=== PATIENT | female | born 1990 | race Two or more races ===

== ENCOUNTER 2024-08-01 18:47 | Emergency (ER) | payer MEDICAID, SELFPAY ==
[2024-08-01 19:01] VITALS: BP 108/61; PULSE 83; RESP 18; TEMP 36.8; O2SAT 99; BMI 37.8
--- NOTE | 2024-08-01 19:11 | XR_ITS ---
Examination: Abdomen sonogram, Limited Date and time of exam: August 01, 2024 1946 hrs. Indications: Epigastric pain beginning 2 hours ago Technique: Real-time jeter scale transabdominal sonographic images of the upper abdomen obtained. Findings: Multiple gallstones Gallbladder wall 0.2 cm Common bile duct 0.3 cm Pancreatic head 3.1 cm Hepatomegaly 20.7 cm fatty infiltration no focal liver lesions Normal hepatopedal portal venous flow Patent IVC Impression: Cholelithiasis, negative for cholecystitis Significant hepatomegaly fatty liver
--- NOTE | 2024-08-01 19:12 | PD.EDRME ---
Rapid Medical Screening Exam RME Arrival date/time: 08/01/24 18:47 33-year-old female approximately 4 weeks presents emergency department complaining of epigastric pain that radiates to upper back. Patient reports onset was today and denies any abdominal cramping or vaginal bleeding. Chief Complaint: Abdominal Pain Vital signs: Vital Signs Temperature 98.3 F 08/01/24 19:01 Pulse Rate 83 08/01/24 19:01 Respiratory Rate 18 08/01/24 19:01 Blood Pressure 108/61 08/01/24 19:01 Pulse Oximetry (%) 99 08/01/24 19:01 Oxygen Delivery Method Room Air 08/01/24 19:01 Vital signs reviewed by provider: Yes
[2024-08-01 20:34] LABS: Collection Type, Urine Clean Catch
[2024-08-01 20:36] LABS: Basophils % (Auto) 0 % (0-2.5); Eosinophils % (Auto) 0 % (0-10); Hematocrit 35.6 % (36.0-46.0); Hemoglobin 12.1 g/dL (12.0-16.0); Immature Granulocytes % (Auto) 0 % (0-0); Immature Granulocytes Auto 0.04 Thou/mm3 (0.00-0.00); Lymphocytes % (Auto) 8 % (10-50); Mean Corpuscular Hemoglobin 29.3 pg (25.0-35.0); Mean Corpuscular Volume 86 fL (80-100); Monocytes # (Auto) 0.5 Thou/mm3 (0.0-0.8); Monocytes % (Auto) 4 % (0-12); Neutrophils # (Auto) 11.6 Thou/mm3 (1.8-7.7); Neutrophils % (Auto) 88 % (37-80); Nucleated Red Blood Cell % 0 /100 WBC (0); Platelet Count 275 Thou/mm3 (140-440); RDW Standard Deviation 41.1 fL (36.4-46.3); Red Blood Count 4.13 Miln/mm3 (4.00-5.20); White Blood Count 13.2 Thou/mm3 (3.6-11.0)
[2024-08-01 20:42] LABS: Bacteria,Urine 2+; Bilirubin,Urine Negative (Negative); Blood,Urine Negative (Negative); Clarity,Urine Turbid (Clear/Hazy); Color,Urine Yellow (Lt Yel-Yel); Culture Indicated,Urine Contaminated; Glucose, Urine Negative (Negative); Ketones,Urine 4+ (Negative); Leukocyte Esterase,Urine Positive (Negative); Nitrite,Urine Negative (Negative); PH,Urine 6.5 (5.0-7.0); Protein,Urine 1+ (Neg - Trace); RBC,Urine 5 /hpf (0-3); Specific Gravity,Urine 1.029 (1.001-1.035); Squamous Epithelial Cell,Urine 31 /hpf (0-5); Urobilinogen,Urine Negative mg/dL (0.0-1.0); WBC,Urine 8 /hpf (0-5)
[2024-08-01 20:55] LABS: Alanine Aminotransferase 17 U/L (10-49); Albumin, Serum 4.3 gm/dL (3.5-5.0); Albumin/Globulin Ratio 1.7 (1.2-2.2); Alkaline Phosphatase 85 U/L (46-116); Anion Gap 8 (7-16); Aspartate Amino Transferase 18 U/L (0-34); BUN/Creatinine Ratio 10 Ratio (12-20); Bilirubin,Total 0.6 mg/dL (0.3-1.2); Blood Urea Nitrogen 5 mg/dL (9-23); Calcium 9.3 mg/dL (8.3-10.6); Calcium (Corrected) 9.3 mg/dL (8.5-10.1); Carbon Dioxide 22.5 mMol/L (20.0-31.0); Chloride 107 mMol/L (98-107); Creatinine (Component) 0.5 mg/dL (0.6-1.3); Estimated Creatinine Clearance 187.2 mL/min (>60); Globulin 2.6 gm/dL (2.3-3.5); Glucose 100 mg/dL (74-106); Lipase 24 U/L (12-53); Osmolality,Calculated 271 (275-295); Potassium 4.1 mMol/L (3.4-5.1); Sodium 137 mMol/L (136-145); Total Protein 6.9 gm/dL (5.7-8.2); eGFR > 60 See Note
[2024-08-01 21:10] VITALS: BP 129/72; PULSE 97; RESP 19; TEMP 36.9; O2SAT 97
--- NOTE | 2024-08-01 22:54 | PD.EDABDPN ---
ED Abdominal Pain RME/HPI General Chief Complaint: Abdominal Pain Stated complaint: EPIGASTRIC PAIN X 30 MIN WITH DIFFICULTY BREATHING Arrival date/time: 08/01/24 18:47 RME / HPI RME / HPI narrative: 08/01/24 18:47 33-year-old female approximately 4 weeks presents emergency department complaining of epigastric pain that radiates to upper back. Patient reports onset was today and denies any abdominal cramping or vaginal bleeding. ---- Dr. Hernandez?s Main ED Evaluation: 33yo female who is ~24 weeks gestation presents to the ED for a chief complaint of epigastric pain. Patient states she visited her PCP's office 3 weeks ago for the same complaint and was prescribed antacids, reporting they improved her symptoms for a period of time, until they recently stopped helping with her symptoms. She endorses having epigastric pain for the last 2-3 days and was concerned so she came in for evaluation. She denies any fever, chills, N/V or any other associated symptoms. Denies any history of similar symptoms. No known allergies. Related Data Allergies Allergy/AdvReac Type Severity Reaction Status Date / Time No Known Allergies Allergy Verified 04/10/23 10:16 Review of Systems Review of Systems Systems Reviewed: All systems reviewed, normal except as documented Narrative Review of Systems: Gen: No fever, no chills, no weight loss EYES: No discharge, no visual changes, no pain HEENT: No ear pain, no congestion, no sore throat PULM: No shortness of breath, no cough, no congestion CV: No chest pain, no dyspnea on exertion, no palpitations GI: No nausea, no vomiting, no diarrhea, + pain, no constipation : No frequency, no urgency, no dysuria Musc/skel: No joint pain, no back pain Skin: No rash. Warm and dry. Psyc: No hallucinations, no depression Heme/Lymph: No easy bleeding or bruising tendencies Neuro: No weakness, no headache Past Medical History Past Medical History NEUROLOGIC: Positive Neurological Disorders and Cuellar's Palsy; Negative Cerebrovascular Accident, Transient Ischemic Attacks (TIA), Dementia, Alzheimer's Disease, Parkinson's Disease, Meningitis, Seizures, Epilepsy, Multiple Sclerosis, Cerebral Palsy, Amyotrophic Lateral Sclerosis (ALS/Roslyn Gehrig's), Guillain-[place] Syndrome, Spina Bifida, Paralysis, Peripheral Neuropathy, Subdural Hematoma, Migraine, Head Trauma, Spinal Cord Injury or Traumatic Brain Injury CARDIAC: Negative Cardiac Disorders or Congestive Heart Failure RESPIRATORY: Negative Chronic Obstructive Pulmonary Disease (COPD) or Asthma (C) GASTROINTESTINAL: Negative Gastrointestinal Disorders, Hepatitis or Colorectal Cancer GENITOURINARY: Negative Genitourinary Disorders, Renal Disease or Prostate Cancer REPRODUCTIVE: Positive Previous Pregnancies; Negative Breast Cancer or Testicular Cancer MUSCULOSKELETAL: Negative Musculoskeletal Disorders or Bone Cancer ENT: Negative Head Trauma ENDOCRINE: Negative Endocrine Disorders, Diabetes Mellitus Type 1 or Diabetes Mellitus Type 2 HEMATOLOGIC: Negative Blood Disorders or Anemia OTHER HISTORY: Negative Autoimmune Disease, Developmental Delay, Blood Transfusions, Blood Transfusion Reaction, Anesthesia Reactions, Chemotherapy, Hyperbaric Therapy, MRSA, VRSA, Vancomycin-Resistant Enterococci, Human Immunodeficiency Virus (HIV), Chicken Pox, Measles, Mumps, Rubella (Spanish Measles), Pertussis, Clostridium Difficile, Breast Cancer, Cervical Cancer, Colorectal Cancer, Lung Cancer, Ovarian Cancer, Prostate Cancer or Testicular Cancer Family History FAMILY HISTORY: Negative Family Psychiatric Problems, Family Respiratory Disorders, Family Cardiac Disorders, Family Gastrointestinal Problems, Family Cancer, Family Surgery or Family Anesthesia Reaction Surgical History SURGICAL: Negative Endocrine Surgery, Ear Surgery or Section Social History SMOKING STATUS: Never smoker SECOND HAND EXPOSURE: No ED Exam Narrative Physical exam: GENERAL APPEARANCE: AxOx4, generally well-appearing, no acute distress. HEENT: NC, AT. MMM. EOMI, clear conjunctiva, oropharynx clear. NECK: Supple without lymphadenopathy. No stiffness or restricted ROM. HEART: Normal rate and regular rhythm, normal S1/S1, no m/r/g LUNGS: CTAB, moving air well. No crackles or wheezes are heard. ABDOMEN: Soft, nontender, no RUQ tenderness, 2 fingers above the fundus, palpable activity, nondistended with good bowel sounds heard. BACK: No midline C/T/L spine pain or deformity, No CVAT, no obvious deformity. EXTREMITIES: Without cyanosis, clubbing or edema. MUSCULOSKELETAL: FROM of all major joints, no chest tenderness NEUROLOGICAL: Grossly nonfocal. Alert and oriented, moving all 4 extremities. CN not formally tested but appear grossly intact. Observed to ambulate with normal gait. Skin: Warm and dry without any rash. Course Quality Measures none Orders Category Date Time Status US gall bladder Stat Exams 08/01/24 19:11 Completed CBC Stat Lab 08/01/24 20:14 Completed CMP [Comprehensive Metabolic Panel] Stat Lab 08/01/24 20:14 Completed Lipase Stat Lab 08/01/24 20:14 Completed Urinalysis, C/S if Indicated Stat Lab 08/01/24 19:34 Completed Vital Signs Vital signs: Vital Signs Temperature 98.3 F 08/01/24 19:01 Pulse Rate 83 08/01/24 19:01 Respiratory Rate 18 08/01/24 19:01 Blood Pressure 108/61 08/01/24 19:01 Pulse Oximetry (%) 99 08/01/24 19:01 Oxygen Delivery Method Room Air 08/01/24 19:01 Pulse ox is 99% on room air, which is normal according to my interpretation. Abdominal Pain MDM MDM Narrative MDM Narrative:: Scribe Attestation: 08/01/24 - Marium Henley, scribing for and in the presence of Dr. Hernandez. Patient data External records reviewed:: [facility] previous records (Per chart review, patient has no relevant previous ED visits to this facility.) Clinical information provided by:: patient Social determinants that could affect healthcare access:: none Patient has the following chronic illnesses:: none How is presenting disease/condition affected by chronic disease/condition?: no chronic disease Evaluation data The following diagnostics were reviewed and interpreted by me:: lab results and radiology exam(s) Lab and/or radiology exams considered but not ordered:: none Interpretation Summary: [facility] Report Signed Patient: AMANDO MAGAÑA Record#: [id number] Birthdate: 1990 Age/Sex: 33 / F Location: [facility] Attending Dr: Ordering Physician: Hood Roland (FNP) Date of Service: 08/01/24 Procedure(s): US gall bladder Accession Number(s): [id number] cc: Chilo Jackson MD; Álvaro Kasper MD; Hood Roland (FNP)~ Examination: Abdomen sonogram, Limited Date and time of exam: August 01, 2024 1946 hrs. Indications: Epigastric pain beginning 2 hours ago Technique: Real-time jeter scale transabdominal sonographic images of the upper abdomen obtained. Findings: Multiple gallstones Gallbladder wall 0.2 cm Common bile duct 0.3 cm Pancreatic head 3.1 cm Hepatomegaly 20.7 cm fatty infiltration no focal liver lesions Normal hepatopedal portal venous flow Patent IVC Impression: Cholelithiasis, negative for cholecystitis Significant hepatomegaly fatty liver Dictated By: Álvaro Kasper MD Signed By: <Electronically signed by Álvaro Kasper MD in OV> 08/01/248 Medications / Prescriptions Medications or Prescriptions considered but not ordered:: none Medication administrations:: none Consultations Consultation(s) initiated? (list below): No Diagnosis Differential diagnosis abdominal pain: constipation, diverticulitis, pancreatitis and other (gastritis, cholecystitis, cholelithiasis) Most likely diagnosis given after review of the tests above:: see below Admission Indicated Admission indicated?: not indicated Admission Request Was there a request for admission?: No Disposition Plan Disposition Plan: Discharge Discharge Attestation Discharge Attestation: The patient and all family members were given an opportunity to ask questions and understood the discharge instructions. Discharge instructions specifically effects, indications for sooner follow up or return to the emergency department, and the expected course of current diagnosis. Patient condition: Stable Discharge Plan Plan Patient Disposition: HOME (Self Care) Prescriptions/Referrals Referrals: Chilo Jackson MD [Primary Care Provider] - In 1 week Problem List Clinical Impression: related conditions, unspecified, second trimester, Cholelithiasis Patient/Caregiver Discharge Instructions Education Materials: ED Gallstones with Biliary Colic, ED Abd Pain Preg Gallstones Additional Instructions: Follow-up with your primary care doctor[facility] on for possible referral to see the [facility]. There are still options of possible surgery given you are in your second trimester, and this to be reviewed with the surgeon. You can return to the emergency department sooner if symptoms worsen or if you notice any new, concerning issues. Print Language: Telugu Stand Alone Forms: [facility] Award Info., Patient Portal Info Letter
== END 2024-08-01 23:06 | disposition home or self-care (01) ==
PROVIDERS: Emergency Provider Emergency Medicine; PCP Family Medicine
DX: O99.612 Diseases of the digestive system complicating pregnancy, second trimester (principal); K80.20 Calculus of gallbladder without cholecystitis without obstruction; O26.612 Liver and biliary tract disorders in pregnancy, second trimester; K76.0 Fatty (change of) liver, not elsewhere classified; Z3A.24 24 weeks gestation of pregnancy
CPT/HCPCS: 36415; 76705; 80053; 81001; 83690; 85025; 99284

== ENCOUNTER 2024-10-11 12:59 | Inpatient (IN) | payer MEDICAID, SELFPAY ==
[2024-10-11] VITALS (39 sets, daily range): BP systolic 120–168; BP diastolic 65–86; PULSE 63–96; RESP 13–98; TEMP 36.3–36.8; O2SAT 92–100; BMI 37.8
[2024-10-11 14:24] LABS: Basophils % (Auto) 0 % (0-2.5); Eosinophils % (Auto) 0 % (0-10); Hematocrit 35.4 % (36.0-46.0); Hemoglobin 11.9 g/dL (12.0-16.0); Immature Granulocytes % (Auto) 0 % (0-0); Immature Granulocytes Auto 0.03 Thou/mm3 (0.00-0.00); Lymphocytes # (Auto) 1.6 Thou/mm3 (1.0-4.8); Lymphocytes % (Auto) 22 % (10-50); Mean Corpuscular HGB Conc 33.6 g/dl (31.0-37.0); Mean Corpuscular Hemoglobin 28.3 pg (25.0-35.0); Mean Corpuscular Volume 84 fL (80-100); Monocytes # (Auto) 0.4 Thou/mm3 (0.0-0.8); Monocytes % (Auto) 6 % (0-12); Neutrophils % (Auto) 71 % (37-80); Nucleated Red Blood Cell % 0 /100 WBC (0); Platelet Count 251 Thou/mm3 (140-440); Red Blood Count 4.21 Miln/mm3 (4.00-5.20); White Blood Count 7.1 Thou/mm3 (3.6-11.0)
[2024-10-11] MEDS: RINGERS LACTATED 1000 ML 1,000 ML 100 ML IV (15:01)
[2024-10-11 15:03] LABS: Amphetamine/Metham Scrn,Ur OB Negative (Negative); Benzoylecgonine Screen, Ur OB Negative (Negative); Opiate Screen,Urine OB Negative (Negative); THC Screen,Urine OB Negative (Negative)
[2024-10-11] MEDS: CITRIC ACID/SODIUM CITR 15 ML UDC (BICITRA) 30 ML PO (15:15)
[2024-10-11] MEDS: FAMOTIDINE INJ 10 MG/ML VIAL 2 ML 20 MG IV (15:15)
[2024-10-11] MEDS: ceFAZolin/D5W 2 GM IV 2 GM/100 ML BAG IV (15:15)
--- NOTE | 2024-10-11 15:18 | PD.LDHP ---
Documentation for date of: 10/11/24 OB Labor/Induct. HPI History of Present Illness Chief complaint: leakage of fluid : 5 Para: 4 Term pregnancies: 4 pregnancies: 0 Living children: 4 History of Abortions: Spontaneous and Elective: 0 History of Vaginal deliveries: 3 History of sections: Yes History of : No Date of last menstrual period: 01/16/24 Gestational age based on last menstrual period: 38 History of present illness: Patient presents for loss of fluid, clear, that occurred at possibly 2130 last night. She was subsequently seen in the office today where gross leakage of fluid was noted and she was sent to L&D. No regular/painful ctx. No vaginal bleeding. Normal movement. No fevers/chills. Of note, patient had been considering a TOLAC and was told to go to [place] if she wished to proceed with TOLAC. However, she considered further and presented here desiring RLTCS. While she has satisfied parity, she never discussed BTL in the office and never signed consents. History of Present Dating criteria: LMP confirmed by 2nd trimester US Adequate Care: No Obstetrical complications: other Narrative: chronic hypertension taking aspirin Labs Labs: Negative: Hepatitis B, HIV, Chlamydia, Gonorrhea and Group Beta Strep Review of Systems Review of Systems Systems Reviewed: All systems reviewed, normal except as documented Constitutional Constitutional: Denies chills, Denies fever(s) and Denies headache(s) ENT Ears, Nose, Mouth, and Throat: Denies headache(s) and Denies vertigo Cardiovascular Cardiovascular: Denies chest pain, Denies dyspnea and Denies syncope Respiratory Respiratory: Denies dyspnea Gastrointestinal Gastrointestinal: Denies nausea and Denies vomiting Neurologic Neurologic: Denies headache(s), Denies other visual disturbances, Denies syncope and Denies vertigo Past Medical History Family History OTHER FAMILY HX: non-contributory Surgical History SURGICAL: Positive Section OTHER SURGICAL HX: appendectomy Social History SOCIAL: No ETOH in . No illicit drug use or tobacco Past Medical History Comments PMH COMMENT: Obesity, CHTN (presumably) noted at first OB visit at 23 weeks when ASA 81mg was initiated, gallstones Meds Home Medications and Allergies Home Medications ?Medication ?Instructions ?Recorded ?Confirmed ?Type aspirin 81 mg tablet,delayed 81 mg 1XD 10/11/24 10/11/24 History release vits no.130-ferrous fum 1 tab 1XD 10/11/24 10/11/24 History 27 mg iron-folic acid 800 mcg tablet ( Vitamin) Allergies Allergy/AdvReac Type Severity Reaction Status Date / Time No Known Allergies Allergy Verified 10/11/24 14:21 OB Exam Physical Exam Vital signs: Temp Pulse Resp BP Pulse Ox 98.3 F 96 18 133/70 H 99 10/11/24 13:18 10/11/24 13:18 10/11/24 13:18 10/11/24 13:17 10/11/24 15:12 Narrative: General: well developed, well nourished, no acute distress, conversant Cardiac: normal heart rate Lungs: breathing without distress Abdomen: soft, gravid, non-tender, no rebound or guarding. Well healed pfannenstiel incision with no hypertrophy. Extremities: no pain with palpation of calves Detailed Labor and Delivery Exam Dilation (cm): 3 Effacement (%): 50 station: -2 Consistency: medium Presentation: Vertex Membranes: ruptured Amniotic fluid: clear monitor accelerations: 15x15 monitor decelerations: None senior care variability: Moderate (11-25) Contraction frequency (min): irregular OB Results Labs 10/11/24 14:04 Labs: Short CBC 10/11/24 Range/Units 14:04 WBC 7.1 (3.6-11.0) Thou/mm3 Hgb 11.9 L (12.0-16.0) g/dL Hct 35.4 L (36.0-46.0) % Plt Count 251 (140-440) Thou/mm3 OB Assessment & Plan Assessment and Plan (1) History of section: Status: Acute Assessment and plan: Sissy is a 34yo with SIUP at 38wk presenting with PROM, clear at 2130 last night. Vitals wnl, benign exam. Reassuring assessment. care: first visit at 23 weeks and mild range bp's noted at that time, so presumably CHTN and ASA 81mg PO QD was initiated. Hx of macrosomia. Indication for section: history of prior section desiring RLTCS. Plan: -Admit to L&D -Establish IV, routine labs -NPO -Counseled/consented re: section. Discussed all r/b/a to include: bleeding (possible need for blood transfusion), infection (subcutaneous, deeper layers or uterine with possible need for prolonged admission or re-admission for IV antibiotics, I&D with wound packing, etc), injury to nearby structures such as bladder, bowel, ureters, blood vessels, nerves with possible need for re-operation, pain, injury to baby, hysterectomy, DVT/PE, . Answered all questions to patient and their support person's satisfaction. -IV abx ppx: 2g IV anceph -Nursing and anesthesia team aware of plan for section. Will proceed to OR when team is ready (2) PROM (premature rupture of membranes): Status: Acute (3) Insufficient care: Status: Acute (4) Chronic hypertension affecting : Status: Acute (2) PROM (premature rupture of membranes) Qualifiers: PROM onset of labor timing: unspecified duration between rupture of membranes and onset of labor PROM gestational age: full term Qualified Code(s): O42.92 - Full-term premature rupture of membranes, unspecified as to length of time between rupture and onset of labor (3) Insufficient care Qualifiers: Trimester: third trimester Qualified Code(s): O09.33 - Supervision of with insufficient care, third trimester
[2024-10-11 15:33] LABS: Syphilis Nonreactive (Nonreactive)
[2024-10-11] MEDS: ACETAMINOPHEN IVPB 1,000 MG/100 ML VIAL 250 MG IV (17:09)
[2024-10-11] MEDS: KETOROLAC INJ 30 MG/ML VIAL IVP ×2 (17:09→23:43)
[2024-10-11] MEDS: ONDANSETRON INJ 2 MG/ML INJ 2 ML 4 MG IV (17:09)
--- NOTE | 2024-10-11 17:23 | ESOP_ITS ---
Operative Note - PURCHASING AND CLAIMS SUPERVISOR Procedure Date of procedure: 10/11/24 Procedure Performed: Repeat low transverse section Indication: Sissy is a 34yo with SIUP at 38wk presenting with PROM, clear at 2130 the night prior. Grossly ruptured on exam. She has history of 3 vaginal deliveries followed by a section for NRFHT in 2022. She desires RLTCS. care: first visit at 23 weeks and mild range bp's noted at that time, so presumably CHTN and ASA 81mg PO QD was initiated. Hx of macrosomia. Pre-Op diagnosis: SIUP at 38wk with PROM History of prior section CHTN Late to care at 23 weeks History of macrosomia Post-Op diagnosis: SIUP at 38wk with PROM History of prior section CHTN Late to care at 23 weeks History of macrosomia Anesthesia type: Spinal Fluid amount (mL): 1,100 Urine output (mL): 450 Specimen: none Estimated blood loss (ml): 700 Findings: Minimal scarring in subcutaneous layer. Clear amniotic fluid. Male infant in cephalic presentation. Normal appearing uterus, fallopian tubes and ovaries. Complications: none Narrative: After obtaining informed consent, the patient was taken to the operating room. There was reassuring heart rate tracing prior. Spinal anesthesia was administered. She had barlow catheter in place and bilateral sequential compression devices were placed. She was then prepped and draped in the normal sterile fashion in the dorsal supine position with left lateral tilt. A timeout was performed to confirm patient name, date of , procedure and indication. The team was in agreement. Spinal anesthesia was found to be adequate using an Allis clamp. Anceph 2g IV x1 were given for prophylaxis. A Pfannenstiel skin incision was then made with the scalpel and carried through to the underlying layer of fascia. The fascia was incised in the midine and the incision was extended laterally with the Hayes scissors. The superior and inferior aspects of the fascial incision were then grasped with the Denver clamps, elevated and the underlying rectus muscles were dissected off bluntly and sharply. The peritoneum was entered digitally and the rectus muscles were then in the midline. The peritoneal incision was then extended superiorly and inferiorly with good visualization of the bladder. An Silvio retractor was placed. The lower uterine segment was scored in a transverse fashion with the scalpel. The uterus was then entered bluntly and the incision was extended with traction with clear amniotic fluid noted. The 's head was elevated to the level of the incision. Fundal pressure was applied. The head was delivered atraumatically in the OA position. The anterior shoulder, posterior shoulder and corpus were delivered without difficulty. The nose and mouth were suctioned with bulb suction and cord was clamped x2 and cut. was vigorous. The was handed off to the awaiting nursing team. Cord blood obtained for typing. The placenta was then removed with uterine massage and cord traction. The uterus was left in-situ and cleared of all clot and debris. The uterine incision was re paired with 0-vicryl suture in a running locking fashion. A second layer of interrupted sutures using O-vicryl was used to closed the hysterotomy incision in an imbricating fashion. The uterine incision was inspected and hemostasis was noted. IV pitocin was given per protocol with good uterine tone achieved. The gutters were cleared of all clot. Silvio retractor was removed. The peritoneum was closed using a 3-0 vicryl suture in running fashion. The rectus muscles were inspected and small areas of oozing were cauterized. The fascia was reapproximated with 0-Vicryl suture in a running fashion. The subcutaneous tissue was then irrigated. At that point ANJALI Lopez reapproximated Aung's fascia using 3-0 vicryl suture in a running fashion. She then sutured the skin with 4-0 monocryl suture in running subcuticular fashion. The incision was cleaned with a wet lap and dried with a dry lap. Oiuxbmohv-[id number] bandage was applied overlying the incision and activated according to fruit express agent instructions. Fundus was firm at the umbilicus. Sponge, lap and needle counts were correct x2. The procedure was without complications and the patient tolerated the procedure well. She was taken to recover further on Labor and Delivery, in stable condition. Surgical staff Operation Date: 10/11/24 15:15 Case Staff SHINGLE SHEARING MACHINE OPERATOR: Segun Shafer RNextrusion machine operator: Jessica Pearl Diagnosis Discharge Diagnosis (1) Chronic hypertension affecting : Status: Acute (2) Insufficient care: Status: Acute (3) PROM (premature rupture of membranes): Status: Acute (4) History of section: Status: Acute Problem List Completed Was Problem List Reviewed/Reconciled?: Yes (2) Insufficient care Qualifiers: Trimester: third trimester Qualified Code(s): O09.33 - Supervision of with insufficient care, third trimester (3) PROM (premature rupture of membranes) Qualifiers: PROM onset of labor timing: unspecified duration between rupture of membranes and onset of labor PROM gestational age: full term Qualified Code(s): O42.92 - Full-term premature rupture of membranes, unspecified as to length of time between rupture and onset of labor
[2024-10-11] MEDS: OXYTOCIN in NS 20 units 20 UNIT/1,000 ML BAG 125 UNIT IV (17:36)
--- NOTE | 2024-10-11 18:10 | PC.NURSE ---
10/11/2024 @[address] DANIEL, PT REPORTS UPPER ABD PAIN AFTER C/S PER PT DESCRIBES PAIN PRESSURE 5/10. PT NAUSEATED AND VOMITING. ORDERS RECEIVED FOR REGLAN 10 MG IV X1.
--- NOTE | 2024-10-11 18:23 | PD.LDDELS ---
Data (Sy) Data Hx Section: Yes : 5 Para: 4 Term: 4 : 0 Livin : 0 Delivery Data (Sy) Labor Data ROM Date: 10/10/24 ROM Time: 22:00 Rupture Type: SROM Amniotic Fluid: Clear Delivery Data Labor Onset Stage 1 Date: 10/10/24 Labor Onset Stage 1 Time: 22:00 Labor Onset Stage 2 Date: 10/11/24 Labor Onset Stage 2 Time: 15:51 Delivery Date: 10/11/24 Delivery Time: 15:51 Placenta Delivery Date: 10/11/24 Placenta Delivery Time: 15:52 Delivered by: Radha Barton Delivery nurse: Madalyn Powers Other staff at delivery: Nurse Other staff at delivery: Type Rolling Machine Operator Other staff at delivery: Scrub Other staff at delivery: Other staff at delivery: Calli Cobian Other staff at delivery: Jessica Pearl Other staff at delivery: MARLIN Other staff at delivery: MICHELLE Delivery Method Delivery: Delivery Type: Repeat Anesthesia Type Primary Anesthesia: Spinal Umbilical Cord Umbilical Vessels: 3 Nuchal Cord: None Body Cord: None Complications Complications: none [place] Data (Sy) Data Gender: Male Infant Weight Grams: 3090 1 Minute Total: 4 5 Minute Total: 6 10 Minute Total: 7
[2024-10-11] MEDS: METOCLOPRAMIDE INJ 5 MG/ML VIAL 2 ML 10 MG IVP (18:35)
--- NOTE | 2024-10-11 18:35 | PC.NURSE ---
10/11/2024 @1835 [address] DANIEL UPDATED ON PT. PT REPORTS TO FEEL DIZZY, FUNDUS IS FRIM MIDLINE AT UMBILICUS, VITAL SIGNS REVIEWED WITH PROVIDER. NO NEW ORDERS GIVEN AT THIS TIME.
--- NOTE | 2024-10-11 20:11 | PC.NURSE ---
2007 Patient confirmed that she would like to begin pumping. Educated patient on use of breast pump and time intervals to pump. Supplies provided and assisted patient to begin pumping. Patient verbalized understanding on use of pump.
[2024-10-12] MEDS: OXYTOCIN in NS 20 units 20 UNIT/1,000 ML BAG 125 UNIT IV (03:40)
[2024-10-12 05:00] VITALS: BP 123/74; PULSE 62; RESP 15; TEMP 36.4; O2SAT 97
[2024-10-12 06:48] LABS: Basophils % (Auto) 0 % (0-2.5); Eosinophils % (Auto) 0 % (0-10); Hemoglobin 10.9 g/dL (12.0-16.0); Immature Granulocytes % (Auto) 0 % (0-0); Immature Granulocytes Auto 0.03 Thou/mm3 (0.00-0.00); Lymphocytes # (Auto) 1.7 Thou/mm3 (1.0-4.8); Lymphocytes % (Auto) 19 % (10-50); Mean Corpuscular HGB Conc 34.1 g/dl (31.0-37.0); Mean Corpuscular Hemoglobin 28.8 pg (25.0-35.0); Mean Corpuscular Volume 84 fL (80-100); Monocytes # (Auto) 0.6 Thou/mm3 (0.0-0.8); Monocytes % (Auto) 7 % (0-12); Neutrophils # (Auto) 6.9 Thou/mm3 (1.8-7.7); Neutrophils % (Auto) 74 % (37-80); Nucleated Red Blood Cell % 0 /100 WBC (0); Platelet Count 228 Thou/mm3 (140-440); RDW Standard Deviation 39.6 fL (36.4-46.3); Red Blood Count 3.79 Miln/mm3 (4.00-5.20); White Blood Count 9.3 Thou/mm3 (3.6-11.0)
[2024-10-12 07:30] VITALS: BP 123/73; PULSE 67; RESP 17; TEMP 36.8; O2SAT 97
[2024-10-12] MEDS: PRENATAL VITAMIN/FE FUM/FA TABLET 1 TAB PO (08:54)
--- NOTE | 2024-10-12 09:06 | PD.LDPPPRG ---
Subjective Subjective Interval history: Patient doing well overall. Pain is controlled. She is ambulating no lightheadedness/dizziness. Voiding spontaneously since barlow was removed, no issues. Tolerating regular diet this morning without further nausea/vomiting (she required both zofran and reglan last night to address her post-op n/v). Passing gas. No fevers/chills, no CP/SOB. Baby is in nursery/NICU, mom states no longer needing O2 and working on feeding. Exam Vital Signs Temp Pulse Resp BP Pulse Ox O2 Del Method 98.2 F 67 17 123/73 97 Room Air 10/12/24 07:30 10/12/24 07:30 10/12/24 07:30 10/12/24 07:30 10/12/24 07:30 10/12/24 07:30 Narrative Exam General: well developed, well nourished, no acute distress, conversant Cardiac: normal heart rate Lungs: breathing without distress Abdomen: soft, post-gravid, non-tender, no rebound or guarding, pfannenstiel incision covered by dry/clean/intact prineo bandage. Incision well reapproximated. No erythema, drainage or induration. Paper tape dressing removed. Extremities: no pain with palpation of calves, trace edema of BLE Objective Labs 10/12/24 05:40 Labs: Laboratory Results - last 24 hr 10/11/24 10/11/24 10/11/24 13:50 14:04 18:20 WBC 7.1 RBC 4.21 Hgb 11.9 L Hct 35.4 L MCV 84 MCH 28.3 MCHC 33.6 RDW Std Deviation 40.0 Plt Count 251 Neut % (Auto) 71 Lymph % (Auto) 22 [place] % (Auto) 6 Eos % (Auto) 0 Baso % (Auto) 0 Neut # (Auto) 5.0 Lymph # (Auto) 1.6 [place] # (Auto) 0.4 Eos # (Auto) 0.0 Baso # (Auto) 0.0 Immature Gran # (Auto) 0.03 H Absolute Nucleated RBC 0.00 Immature Gran % 0 Nucleated RBC % 0 Membrane Rupture Cancelled Urine Opiates Screen Negative U Amphetamin/Meth Scrn Negative U Cocaine Metab Screen Negative U Marijuana (THC) Screen Negative Syphilis Serology Nonreactive Blood Type O Positive Antibody Screen NEGATIVE Blood Bank Wristband ID Yes 10/12/24 05:40 WBC 9.3 RBC 3.79 L Hgb 10.9 L Hct 32.0 L MCV 84 MCH 28.8 MCHC 34.1 RDW Std Deviation 39.6 Plt Count 228 Neut % (Auto) 74 Lymph % (Auto) 19 [place] % (Auto) 7 Eos % (Auto) 0 Baso % (Auto) 0 Neut # (Auto) 6.9 Lymph # (Auto) 1.7 [place] # (Auto) 0.6 Eos # (Auto) 0.0 Baso # (Auto) 0.0 Immature Gran # (Auto) 0.03 H Absolute Nucleated RBC 0.00 Immature Gran % 0 Nucleated RBC % 0 Membrane Rupture Urine Opiates Screen U Amphetamin/Meth Scrn U Cocaine Metab Screen U Marijuana (THC) Screen Syphilis Serology Blood Type Antibody Screen Blood Bank Wristband ID Assessment & Plan Problem List (1) History of section: Status: Acute Assessment and plan: Sissy is a 34yo [id number] s/p uncomplicated RLTCS after presenting in with PROM at term, doing well on POD 1. Vitals wnl, benign exam. Hemodynamically stable with no evidence of infection. Appropriate change in H/H (10.9 from 11.9). complicated by: first visit at 23 weeks and mild range bp's noted at that time, so presumably CHTN and ASA 81mg PO QD was initiated. Hx of macrosomia. Hx of section. Plan: -Continue routine /post-op care -Regular diet -motrin 800mg PO Q8hr, norco 5/325mg PO Q6hr prn pain -Encourage ambulation and use of IS -Anticipate discharge home tomorrow if meeting all milestones (2) Chronic hypertension affecting : Status: Acute (3) Insufficient care: Status: Acute (4) PROM (premature rupture of membranes): Status: Acute Time Spent With Patient Time: Total time spent is greater than 50% in coordination of care (as documented) at patient's floor/unit and/or counseling patient:
[2024-10-12] MEDS: ACETAMINOPHEN 325 MG TABLET 650 MG PO (09:59)
[2024-10-12 11:30] VITALS: BP 118/75; PULSE 62; RESP 17; TEMP 36.7; O2SAT 97
[2024-10-12] MEDS: KETOROLAC INJ 30 MG/ML VIAL IVP (12:29)
[2024-10-12 15:40] VITALS: BP 106/67; PULSE 74; RESP 18; TEMP 36.7; O2SAT 97
[2024-10-12] MEDS: IBUPROFEN TAB 400 MG TABLET 800 MG PO (17:49)
[2024-10-12 20:50] VITALS: BP 122/76; PULSE 69; RESP 18; TEMP 36.7; O2SAT 98
[2024-10-13] MEDS: IBUPROFEN TAB 400 MG TABLET 800 MG PO ×2 (01:46→09:05)
[2024-10-13 04:30] VITALS: BP 114/72; PULSE 62; RESP 16; TEMP 36.9; O2SAT 97
[2024-10-13] MEDS: HYDROcodone/APAP 5/325 TABLET 1 TAB PO (04:44)
[2024-10-13 08:09] VITALS: BP 108/69; PULSE 61; RESP 17; TEMP 36.4; O2SAT 97
[2024-10-13] MEDS: PRENATAL VITAMIN/FE FUM/FA TABLET 1 TAB PO (09:05)
--- NOTE | 2024-10-13 10:31 | PD.LDDS ---
DS: Providers Provider Date of admission: 10/11/24 13:11 Primary care physician: Physician No Primary/Family Admitting Provider: Radha Barton MD Attending Provider on Admission: Radha Barton MD Attending Provider on DC: Radha Barton MD Discharging Provider: Radha Barton MD DS: Diagnosis Discharge Diagnosis (1) Chronic hypertension affecting : Status: Acute (2) Insufficient care: Status: Acute (3) PROM (premature rupture of membranes): Status: Acute (4) History of section: Status: Acute (5) delivery delivered: Status: Acute Problem List Completed Was Problem List Reviewed/Reconciled?: Yes Summary/Hosp Course Brief History: Sissy is a 34yo [id number] s/p uncomplicated RLTCS after presenting in with PROM at term, doing well on POD 2. She has had an uncomplicated post-operative course, meeting all milestones and feels ready for discharge home. She is ambulating without lightheadedness, tolerating regular diet no n/v, spontaneously voiding without issue. She has no chest pain or shortness of breath. No fevers or chills. Pain well controlled. Vitals normal, benign exam. Hemodymanically stable with no evidence of infection. Appropriate change in H/H (10.9 from 11.9). Peripartum Data Procedures: Procedures Operation Date: 10/11/24 15:15 Actual Procedure Side Surgeon p in OB Not Applicable Radha Barton MD Status at Discharge Functional status at discharge: independent ambulation Overall status at discharge: patient is back to baseline Time Spent with Patient Time attestation: Total time spent providing and/or coordinating discharge services: Time spent: Less than 30 minutes Exam Vital Signs Temp Pulse Resp BP Pulse Ox O2 Del Method 97.6 F 61 17 108/69 97 Room Air 10/13/24 08:09 10/13/24 08:09 10/13/24 08:09 10/13/24 08:09 10/13/24 08:09 10/13/24 08:09 Narrative Exam General: well developed, well nourished, no acute distress, conversant Cardiac: normal heart rate Lungs: breathing without distress Abdomen: soft, post-gravid, non-tender, no rebound or guarding, pfannenstiel incision covered by dry/clean/intact prineo bandage. Incision well reapproximated. No erythema, drainage or induration. Fundus firm at u-2cm. Extremities: no pain with palpation of calves, trace edema of BLE Discharge Plan Plan Patient Disposition: HOME (Self Care) Patient condition on transfer: Stable Prescriptions/Referrals Prescriptions/Med Rec: New hydrocodone-acetaminophen 5-325 mg Tablet 1 tab PO Q6HR MDD 4 tablets PRN (Reason: Patient rated pain 9 to 10) 10 Days Qty: 14 0RF ibuprofen 800 mg tablet 800 mg PO Q8HR PRN (Reason: Abdominal Pain) 10 Days Qty: 30 0RF polyethylene glycol 3350 [ClearLax] 17 gram powder in packet 17 g PO QDAY Qty: 14 0RF Accrufer 30 mg capsule 30 mg PO QDAY Qty: 30 0RF Continued Vitamin 27 mg iron- 800 mcg tablet 1 tab 1XD Discontinued aspirin 81 mg tablet,delayed release (DR/EC) 81 mg 1XD Referrals: No Primary/Family,Physician [Primary Care Provider] - Patient/Caregiver Discharge Instructions Discharge Activity: activity as tolerated Other Discharge Activity Instructions:: No heavy lifting more than 10 pounds and vaginal rest for 6 weeks[address] No driving while taking narcotic. Do not submerge incision. Keep incision clean and dry. Follow up with OBGYN or CNM in 1 week for incision check, call clinic for appointment. Other Discharge Diet Instructions: regular diet Education Materials: C Section Dc Print Language: Venezuelan Stand Alone Forms: [facility]na Award Info., Patient Portal Info Letter Discharge Order Discharge Orders: Discharge (Routine); Ordered 10/13/24 Ordered By: Radha Barton Planned Discharge Date 10/13/24 (2) Insufficient care Qualifiers: Trimester: third trimester Qualified Code(s): O09.33 - Supervision of with insufficient care, third trimester (3) PROM (premature rupture of membranes) Qualifiers: PROM onset of labor timing: unspecified duration between rupture of membranes and onset of labor PROM gestational age: full term Qualified Code(s): O42.92 - Full-term premature rupture of membranes, unspecified as to length of time between rupture and onset of labor
--- NOTE | 2024-10-13 10:49 | PC.NURSE ---
Cleared by whit from social media strategist
--- NOTE | 2024-10-13 10:53 | PC.SS ---
Update: SS received referral for late to care. SS introduced self and role. SS disclosed basis for referral. Referral due to late to care. Patient confirmed late to care due to not knowing she was . Once seen, care was at [facility] with Dr. Jones. Patient had baby boy at 37 weeks via csection. Baby boy, Nicholas. FOB is involved, spouse is Cristopher Beltran. Patient plans on combo feeding. Patient has no hx: mental illness, drug use, or domestic violence. Patient already has WIC, FS, car seat, baby supplies and equipment. Patient has positive support from spouse and immediate family. SS staff provided community resources. FOB will provide d/c transportation. SS updated nursing.
== END 2024-10-13 12:30 | disposition home or self-care (01) | DRG 540 ==
LOC: S4SX 14:41 → S4NX 15:32
PROVIDERS: Admitting Provider Obstetrics & Gynecology; Visit Provider Obstetrics & Gynecology
PROC: 10D00Z1 Extraction of Products of Conception, Low, Open Approach (ICD-10-PCS; CPT 59514; principal; 2024-10-11 15:15)
DX: O34.211 Maternal care for low transverse scar from previous cesarean delivery (principal); O10.92 Unspecified pre-existing hypertension complicating childbirth; Z37.0 Single live birth; Z3A.38 38 weeks gestation of pregnancy
CPT/HCPCS: 36415; 59409; 80307; 84112; 85025; 86780; 86850; 86900; 86901; 94762; A4649; J0131; J0689; J1885; J2274; J2405; J2590; J2765; J3490; J7120; A9270; J2270